=== PATIENT | male | born 1990 | race Caucasian/White ===

== ENCOUNTER 2016-11-27 13:16 | Inpatient (IN) ==
[2016-11-27 13:32] LABS: Bilirubin,Urine Negative (Negative); Blood,Urine Negative (Negative); Clarity,Urine Clear (Clear); Color,Urine Yellow (Yellow); Glucose,Urine (UA) Normal (Normal); Ketones,Urine Negative (Negative); Leukocyte Esterase,Urine Moderate (Negative); Nitrite,Urine Negative (Negative); PH,Urine 6.5 pH Units (5.0-8.0); Protein,Urine Negative (Neg-Trace); Specific Gravity,Urine 1.006 (1.010-1.025); Urobilinogen,Urine Normal (Normal)
[2016-11-27 13:36] LABS: Bacteria,Urine None Seen per hpf (None-Few); Hyaline Casts,Urine None Seen per lpf (None-Few); RBC,Urine 0-3 per hpf (0-3); Squamous Epithelial Cell,Urine Moderate per lpf (None-Few)
[2016-11-27 13:38] LABS: Amphetamine Screen,Urine Negative ng/mL (Cutoff=1000); Barbiturate Screen,Urine Negative ng/mL (Cutoff=200); Benzodiazepines Screen,Urine Negative ng/mL (Cutoff=200); Cannabinoid Screen,Urine Negative ng/mL (Cutoff = 50); Cocaine Screen,Urine Negative ng/mL (Cutoff= 300); Opiate Screen,Urine Negative ng/mL (Cutoff=300); Phencyclidine Screen,Urine Negative ng/mL (Cutoff=25)
[2016-11-27 13:43] LABS: Basophils # 0.1 K/mcL (0.0-0.2); Basophils % 0.7 %; Eosinophils # 0.3 K/mcL (0.0-0.6); Eosinophils % 2.5 %; Hematocrit 47.1 % (37.5-50.1); Hemoglobin 16.2 g/dL (12.9-16.9); Immature Granulocytes % 0.4 % (0-4); Lymphocytes # 2.3 K/mcL (0.6-4.6); Lymphocytes % 17.2 %; Mean Corpuscular HGB Conc 34.4 g/dL (31.6-35.5); Mean Corpuscular Hemoglobin 30.2 pg (28.0-33.3); Mean Corpuscular Volume 87.7 fL (83.0-100.0); Mean Platelet Volume 9.4 fL (9.4-12.4); Monocytes # 0.7 K/mcL (0.0-1.3); Monocytes % 5.4 %; Neutrophils # 9.9 K/mcL (1.6-8.9); Platelet Count 212 K/mcL (140-400); Red Blood Count 5.37 M/mcL (4.19-5.50); Red Cell Distribution Width 12.4 % (11.5-14.5); Segmented Neutrophils % 73.8 %
[2016-11-27 14:00] LABS: Acetaminophen < 1.0 mcg/mL (10-30); BUN/Creatinine Ratio 9 (6-26); Blood Urea Nitrogen 7 mg/dL (8-26); Calcium 9.8 mg/dL (8.6-10.8); Carbon Dioxide 25 mEq/L (19-29); Chloride 105 mEq/L (98-109); Ethanol < 10 mg/dL (0-10); Glucose 87 mg/dL (70-99); Osmolality,Calculated 283 (280-300); Salicylate < 5.0 mg/dL (15-30); Sodium 138 mEq/L (136-145); eGFR For African Americans > 60 (> 60); eGFR For Non-African Americans > 60 (> 60)
--- NOTE | 2016-11-27 14:14 | Emergency Department Note ---
Disposition Clinical Impression: Suicidal ideation Disposition: Admitted As Inpatient Psych HPI - General Chief Complaint: ED Psychiatric Symptoms Stated Complaint: suicidal ideations Time Seen by Provider: 11/27/16 13:21 Source: patient, EMS Mode of arrival: ambulatory Limitations: no limitations Nursing Notes Reviewed: Yes Vital Signs Reviewed: Yes - History of Present Illness Pt complaint: suicidal ideation Onset (ago): Just [employer] Duration: constant History of similar episodes: Yes Improves with: none Worsens with: none Alleged intoxication: No Associated Psychiatric Symptoms: suicidal ideation Associated symptoms: Reports: denies other symptoms Traumatic symptoms: denies traumatic injury Treatments prior to arrival: none Self harm or harm to others: admits thoughts of self harm (very upset today also no internet connection) - Related Data Allergies Allergy/AdvReac Type Severity Reaction Status Date / Time Erythromycin Base Allergy Anaphylaxis Verified 11/27/16 13:18 [From Erythrocin] penicillamine Allergy Anaphylaxis Verified 11/27/16 13:18 All systems ED: reviewed and negative except as stated. Constitutional: Denies: fever, chills, weakness Cardiovascular: Denies: chest pain Gastrointestinal: Denies: abdominal pain, nausea Past Medical History - Past Medical History Source: patient, old records reviewed, nursing notes reviewed Medical history: Reports: no medical history Psychiatric history: Reports: bipolar, schizophrenia - Social History Smoking Status: Current every day smoker Smokeless Tobacco Status: No Alcohol use: Reports: occasionally Drug use: Reports: marijuana Physical Exam - General Limitations: no limitations General appearance: alert, in no apparent distress - Head Head exam: atraumatic, normocephalic, normal inspection - Eye Eye exam: Present: normal appearance, PERRL, EOMI - Expanded Eye Exam Pupils: Left: reactive - ENT ENT exam: normal exam, normal oropharynx, mucous membranes moist - Expanded ENT Exam External ear exam: Present: normal external inspection Mouth exam: Present: normal external inspection Teeth exam: Present: normal inspection Throat exam: Present: normal inspection - Neck Neck exam: Present: normal inspection, full ROM, trachea midline - Chest Chest inspection: Present: normal inspection, symmetric chest wall rise - Respiratory Respiratory exam: Present: normal lung sounds bilaterally - Cardiovascular Cardiovascular exam: Present: regular rate, normal rhythm, normal heart sounds - Abdominal Exam Abdominal exam: Present: soft, Non-Tender. Absent: tenderness, distention, guarding, rebound, rigidity - Extremities Exam Extremities exam: Present: normal inspection, full ROM. Absent: tenderness, pedal edema - Expanded Upper Extremity Exam Shoulder exam: Present: normal inspection, full ROM Arm exam: Present: normal inspection, full ROM Elbow exam: Present: normal inspection, full ROM Forearm/Wrist exam: Present: normal inspection, full ROM Hand exam: Present: normal inspection, full ROM Vascular exam: Normal: capillary refill, radial pulse - Expanded Lower Extremity Exam Hip/Pelvis exam: Present: normal inspection, full ROM Upper leg exam: Present: normal inspection, full ROM Knee exam: Present: normal inspection, full ROM Lower leg exam: Present: normal inspection, full ROM Ankle exam: Present: normal inspection, full ROM Foot/toe exam: Present: normal inspection, full ROM Neurovascular/Tendon exam: Absent: motor deficit, sensory deficit, tendon deficit - Back Exam Back exam: Present: normal inspection, full ROM. Absent: tenderness - Neurological Exam Neurological exam: Present: alert, oriented X3 - Expanded Neurological Exam Patient oriented to: Present: person, place, time Coma Scale Eye Opening: Spontaneous Coma Scale Motor Response: Obeys Commands Coma Scale Verbal Response: Oriented Coma Scale Total: 15 - Psychiatric Psychiatric exam: Present: suicidal ideation - Skin Skin exam: Present: other (self inflicted abrasion left arm) Course Vital Signs Temperature 97.6 F 11/27/16 13:22 Pulse Rate 97 11/27/16 13:22 Respiratory Rate 16 11/27/16 13:22 Blood Pressure 131/87 11/27/16 13:22 O2 Sat by Pulse Oximetry 98 11/27/16 13:22 Temperature 97.6 F 11/27/16 13:22 Pulse Rate 97 11/27/16 13:22 Respiratory Rate 16 11/27/16 13:22 Blood Pressure 131/87 11/27/16 13:22 O2 Sat by Pulse Oximetry 98 11/27/16 13:22 Oxygen Delivery Oxygen Delivery Room Air Psych - Lab Data Result diagrams: 11/27/16 13:35 11/27/16 13:35 Lab Results 11/27/16 11/27/16 11/27/16 Range/Units 13:22 13:22 13:35 WBC 13.5 H (4.3-11.1) K/mcL RBC 5.37 (4.19-5.50) M/mcL Hgb 16.2 (12.9-16.9) g/dL Hct 47.1 (37.5-50.1) % MCV 87.7 (83.0-100.0) fL MCH 30.2 (28.0-33.3) pg MCHC 34.4 (31.6-35.5) g/dL RDW 12.4 (11.5-14.5) % Plt Count 212 (140-400) K/mcL MPV 9.4 (9.4-12.4) fL Immature Gran % 0.4 (0-4) % Seg Neutrophils % 73.8 % Lymphocytes % 17.2 % Monocytes % 5.4 % Eosinophils % 2.5 % Basophils % 0.7 % Neutrophils # 9.9 H (1.6-8.9) K/mcL Lymphocytes # 2.3 (0.6-4.6) K/mcL Monocytes # 0.7 (0.0-1.3) K/mcL Eosinophils # 0.3 (0.0-0.6) K/mcL Basophils # 0.1 (0.0-0.2) K/mcL Sodium (136-145) mEq/L Potassium (3.5-4.5) mEq/L Chloride (98-109) mEq/L Carbon Dioxide (19-29) mEq/L BUN (8-26) mg/dL Creatinine (0.72-1.25) mg/dL Est GFR ( Amer) (> 60) Est GFR (Non-Af Amer) (> 60) BUN/Creatinine Ratio (6-26) Glucose (70-99) mg/dL Calculated Osmolality (280-300) Calcium (8.6-10.8) mg/dL Urine Color Yellow (Yellow) Urine Clarity Clear (Clear) Urine pH 6.5 (5.0-8.0) pH Units Ur Specific [place] 1.006 L (1.010-1.025) Urine Protein Negative (Neg-Trace) mg/dL Urine Glucose (UA) Normal (Normal) mg/dL Urine Ketones Negative (Negative) mg/dL Urine Blood Negative (Negative) Urine Nitrite Negative (Negative) Urine Bilirubin Negative (Negative) Urine Urobilinogen Normal (Normal) mg/dL Ur Leukocyte Esterase Moderate H (Negative) Urine Microscopic RBC 0-3 (0-3) per hpf Urine Microscopic WBC 3-5 H (0-3) per hpf Ur Squamous Epith Cells Moderate H (None-Few) per lpf Urine Bacteria None Seen (None-Few) per hpf Hyaline Casts None Seen (None-Few) per lpf Salicylates (15-30) mg/dL Urine Opiates Screen Negative (Avyvsb=064) ng/mL Acetaminophen (10-30) mcg/mL Ur Barbiturates Screen Negative (Hhklos=479) ng/mL Ur Phencyclidine Scrn Negative (Cutoff=25) ng/mL Ur Amphetamines Screen Negative (Kptcii=9719) ng/mL U Benzodiazepines Scrn Negative (Oygsjz=593) ng/mL Urine Cocaine Screen Negative (Cutoff= 300) ng/mL U Marijuana (THC) Screen Negative (Cutoff = 50) ng/mL Ethyl Alcohol (0-10) mg/dL 11/27/16 Range/Units 13:35 WBC (4.3-11.1) K/mcL RBC (4.19-5.50) M/mcL Hgb (12.9-16.9) g/dL Hct (37.5-50.1) % MCV (83.0-100.0) fL MCH (28.0-33.3) pg MCHC (31.6-35.5) g/dL RDW (11.5-14.5) % Plt Count (140-400) K/mcL MPV (9.4-12.4) fL Immature Gran % (0-4) % Seg Neutrophils % % Lymphocytes % % Monocytes % % Eosinophils % % Basophils % % Neutrophils # (1.6-8.9) K/mcL Lymphocytes # (0.6-4.6) K/mcL Monocytes # (0.0-1.3) K/mcL Eosinophils # (0.0-0.6) K/mcL Basophils # (0.0-0.2) K/mcL Sodium 138 (136-145) mEq/L Potassium 4.0 (3.5-4.5) mEq/L Chloride 105 (98-109) mEq/L Carbon Dioxide 25 (19-29) mEq/L BUN 7 L (8-26) mg/dL Creatinine 0.77 (0.72-1.25) mg/dL Est GFR ( Amer) > 60 (> 60) Est GFR (Non-Af Amer) > 60 (> 60) BUN/Creatinine Ratio 9 (6-26) Glucose 87 (70-99) mg/dL Calculated Osmolality 283 (280-300) Calcium 9.8 (8.6-10.8) mg/dL Urine Color (Yellow) Urine Clarity (Clear) Urine pH (5.0-8.0) pH Units Ur Specific [place] (1.010-1.025) Urine Protein (Neg-Trace) mg/dL Urine Glucose (UA) (Normal) mg/dL Urine Ketones (Negative) mg/dL Urine Blood (Negative) Urine Nitrite (Negative) Urine Bilirubin (Negative) Urine Urobilinogen (Normal) mg/dL Ur Leukocyte Esterase (Negative) Urine Microscopic RBC (0-3) per hpf Urine Microscopic WBC (0-3) per hpf Ur Squamous Epith Cells (None-Few) per lpf Urine Bacteria (None-Few) per hpf Hyaline Casts (None-Few) per lpf Salicylates < 5.0 L (15-30) mg/dL Urine Opiates Screen (Eloouq=802) ng/mL Acetaminophen < 1.0 L (10-30) mcg/mL Ur Barbiturates Screen (Lgggcw=473) ng/mL Ur Phencyclidine Scrn (Cutoff=25) ng/mL Ur Amphetamines Screen (Xqcoqd=6738) ng/mL U Benzodiazepines Scrn (Tvsxfs=379) ng/mL Urine Cocaine Screen (Cutoff= 300) ng/mL U Marijuana (THC) Screen (Cutoff = 50) ng/mL Ethyl Alcohol < 10 (0-10) mg/dL Psychiatric Medical Clearance - Medical Clearance Checklist Medical History: No Social History Section defined Current Vitals: Last Vital Signs Temp 97.6 F 11/27/16 13:22 Pulse 97 11/27/16 13:22 Resp 16 11/27/16 13:22 BP 131/87 11/27/16 13:22 Pulse Ox 98 11/27/16 13:22 Psychiatric Lab Panel: Drug Levels and Toxicity 11/27/16 11/27/16 13:22 13:35 Urine Opiates Screen Negative Acetaminophen < 1.0 L Ur Barbiturates Screen Negative Ur Phencyclidine Scrn Negative Ur Amphetamines Screen Negative U Benzodiazepines Scrn Negative Urine Cocaine Screen Negative U Marijuana (THC) Screen Negative Ethyl Alcohol < 10 Abnormal Labs: Abnormal lab results WBC 13.5 K/mcL (4.3-11.1) H 11/27/16 13:35 Neutrophils # 9.9 K/mcL (1.6-8.9) H 11/27/16 13:35 BUN 7 mg/dL (8-26) L 11/27/16 13:35 Ur Specific [place] 1.006 (1.010-1.025) L 11/27/16 13:22 Ur Leukocyte Esterase Moderate (Negative) H 11/27/16 13:22 Urine Microscopic WBC 3-5 per hpf (0-3) H 11/27/16 13:22 Ur Squamous Epith Cells Moderate per lpf (None-Few) H 11/27/16 13:22 Salicylates < 5.0 mg/dL (15-30) L 11/27/16 13:35 Acetaminophen < 1.0 mcg/mL (10-30) L 11/27/16 13:35 Statement of Medical Clearance: I have evaluated the patient, reviewed diagnostic information, and certify that the patient's medical condition is sufficiently stable that transfer to the psychiatric unit does not pose a significant risk of deterioration.
[2016-11-27] MEDS ORDERED: Haloperidol Lactate 5 MG/ML VIAL IM PRN (16:44)
[2016-11-27] MEDS ORDERED: hydrOXYzine pamoate 25 MG CAPSULE PO PRN (16:44)
[2016-11-27] MEDS ORDERED: Acetaminophen 325 MG TABLET PO PRN (16:44)
[2016-11-27] MEDS ORDERED: MOM Conc 10 ML UD.LIQ PO PRN (16:44)
[2016-11-27] MEDS ORDERED: *HR* LORazepam 2 MG/ML VIAL IM PRN (16:44)
[2016-11-27] MEDS ORDERED: traZODone 50 MG TABLET PO PRN (16:44)
[2016-11-27] MEDS ORDERED: *HR* LORazepam 1 MG TABLET PO PRN (16:44)
[2016-11-27] MEDS ORDERED: Mag Hydrox/Al Hydrox/Simeth 30 ML UDC PO PRN (16:44)
[2016-11-27] MEDS ORDERED: Ibuprofen 400 MG TABLET PO PRN (16:44)
[2016-11-27] MEDS: RisperiDAL 3 MG TABLET PO SCH (20:47)
[2016-11-27] MEDS: Lithium Carbonate 300 MG CAPSULE PO SCH (20:48)
[2016-11-28] MEDS: Lithium Carbonate 300 MG CAPSULE PO SCH ×2 (08:32→20:45)
[2016-11-28] MEDS: Nicotine 2 MG GUM BC PRN ×3 (08:36→16:51)
--- NOTE | 2016-11-28 13:07 | Psychiatry History & Physical ---
Date of Encounter: 11/28/16 Time of Encounter: 11:55 History of Present Illness Patient Stated Chief Complaint: "I feel depressed and hopeless and suicidal" Medicare Admission Attestation: For traditional Medicare patients the provided hospital inpatient services are reasonable and necessary and in the case of services not specified as inpatient -only under 42 CFR 419.22 (n), that they are appropriately provided as inpatient services in accordance 42 CFR 412.3. For Critical Access Hospital the patient may reasonably be expected to be discharged or transferred to a hospital within 96 hours after admission to the Critical Access Hospital. Admitted From: Emergency Dept Plans for Post Hospital Care: Home History of Present Illness: Mr. Murillo is a 26 year old male Was known to us from prior multiple hospitalizations. He is noted to have a diagnosis of bipolar disorder. Patient reported that he has been fairly stable and has been doing well for the last few years. Patient reported that last week he found out that the financial analyst that is helping him to attend school will be discontinued. Patient reported that this has devastated him and he felt sad and depression with sadness hopelessness helplessness crying and weeping spells poor sleep and recurrent suicidal thoughts and ideations. Patient reported that his depressive symptoms have been getting worse to a point where he decided to slit his wrists. He did make a superficial cut he continued to experience suicidal thoughts and ideations was unable to contract for safety and was posing a significant threat to himself it was decided to transfer him in hospitalize him at [address] Past Med Surg Social Fam HX - Past Medical History Medical history: no medical history - Past Psychiatric History Psychiatric history: Reports: bipolar, depression, prior suicide attempt, previous psychiatric hospitalization Past psychiatric history details: Patient has extensive history of mental illness. Patient reported multiple prior psychiatric hospitalizations. His last hospitalization was in 2012. He has been receiving outpatient treatment [facility] to [facility]. Patient reportedly been compliant with his medications which are lithium and Risperdal and Paxil Family psychiatric history: No Family History of Suicide: None - Past Surgical History Surgical History: no surgical history - Social History Smoking Status: Current every day smoker Smokeless Tobacco Status: No Alcohol use: occasionally Drug use: cocaine, marijuana Additional substance use detail: Patient reported of using marijuana on a regular basis along with LSD cocaine and alcohol almost on a weekly basis.. Occupational status: disabled Current living situation: Home - Independent Activity Level: Independent ambulation Recent Out of Country Travel Within the Last 8 Weeks: No Exposure or Possible Exposure to Illness During Travel: No Additional social history: Patient is currently residing by himself. He is single but in a relationship with an older woman for the last 3 years. He is attending [employer] and just finished his first semester. He resides on his own. He denies any current legal issues. Medications & Allergies [place] Carbonate 600 mg PO BID 11/27/16 [History] Paroxetine [Paxil] 30 mg PO HS 11/27/16 [History] RisperiDONE [RisperDAL] 3 mg PO HS 11/27/16 [History] Allergies Erythromycin Base [From Erythrocin] Allergy (Verified 11/27/16 13:18) Anaphylaxis penicillamine Allergy (Verified 11/27/16 13:18) Anaphylaxis Review of Systems Psychiatric: Reports: depression, anxiety, abnormal sleep pattern, suicidal ideation, hopelessness Mental Status Exam Patient orientation: Yes Person, Yes Time, Yes Place Level of alertness: Alert Patient appearance: Appropriate, Unkempt, Disheveled Behavior: calm, cooperative Psychomotor activity: Normal Eye contact: Maintains Eye Contact Mood description: Depressed, Anxious Affect description: constricted, blunted Speech pattern: Normal rate, Normal rhythm, Normal tone Speech volume: Normal Thought process: Linear, Goal Oriented Thought content: Yes Suicidal ideation, No Homicidal ideation, No Overt delusions Perceptual disturbances: No Auditory hallucinations, No Visual hallucinations Attention span: Capable of Focused Attention Memory description: Grossly Intact Patient reliability: Reliable Historian Intelligence estimate: Average Judgment: Limited Insight: Partial Exam - HEENT Head exam IM: Present: atraumatic, normal inspection, normocephalic Eye exam IM: Present: normal appearance ENT exam IM: Present: mucous membranes dry - Neurological Neurological exam IM: Present: alert, CN II-XII intact, normal gait, oriented X3 , reflexes normal, no focal deficits, strengths equal and symetr throughout - GI/Abdominal GI/Abdominal exam IM: Present: normal bowel sounds - Skin Skin exam IM: Present: intact Results - Vital Signs Vital signs: Temp Pulse Resp BP Pulse Ox 98.2 F 81 16 116/74 98 11/28/16 09:00 11/28/16 09:00 11/28/16 09:00 11/28/16 09:00 11/27/16 13:22 - Drug Levels and Toxicology Drug Levels and Toxicology: Drug Levels and Toxicity 11/27/16 17:58 [place] 0.5 L - Labs Labs: Laboratory Last Values WBC 13.5 K/mcL (4.3-11.1) H 11/27/16 13:35 RBC 5.37 M/mcL (4.19-5.50) 11/27/16 13:35 Hgb 16.2 g/dL (12.9-16.9) 11/27/16 13:35 Hct 47.1 % (37.5-50.1) 11/27/16 13:35 MCV 87.7 fL (83.0-100.0) 11/27/16 13:35 MCH 30.2 pg (28.0-33.3) 11/27/16 13:35 MCHC 34.4 g/dL (31.6-35.5) 11/27/16 13:35 RDW 12.4 % (11.5-14.5) 11/27/16 13:35 Plt Count 212 K/mcL (140-400) 11/27/16 13:35 MPV 9.4 fL (9.4-12.4) 11/27/16 13:35 Immature Gran % 0.4 % (0-4) 11/27/16 13:35 Seg Neutrophils % 73.8 % 11/27/16 13:35 Lymphocytes % 17.2 % 11/27/16 13:35 Monocytes % 5.4 % 11/27/16 13:35 Eosinophils % 2.5 % 11/27/16 13:35 Basophils % 0.7 % 11/27/16 13:35 Neutrophils # 9.9 K/mcL (1.6-8.9) H 11/27/16 13:35 Lymphocytes # 2.3 K/mcL (0.6-4.6) 11/27/16 13:35 Monocytes # 0.7 K/mcL (0.0-1.3) 11/27/16 13:35 Eosinophils # 0.3 K/mcL (0.0-0.6) 11/27/16 13:35 Basophils # 0.1 K/mcL (0.0-0.2) 11/27/16 13:35 Sodium 138 mEq/L (136-145) 11/27/16 13:35 Potassium 4.0 mEq/L (3.5-4.5) 11/27/16 13:35 Chloride 105 mEq/L (98-109) 11/27/16 13:35 Carbon Dioxide 25 mEq/L (19-29) 11/27/16 13:35 BUN 7 mg/dL (8-26) L 11/27/16 13:35 Creatinine 0.77 mg/dL (0.72-1.25) 11/27/16 13:35 Est GFR ( Amer) > 60 (> 60) 11/27/16 13:35 Est GFR (Non-Af Amer) > 60 (> 60) 11/27/16 13:35 BUN/Creatinine Ratio 9 (6-26) 11/27/16 13:35 Glucose 87 mg/dL (70-99) 11/27/16 13:35 Calculated Osmolality 283 (280-300) 11/27/16 13:35 Calcium 9.8 mg/dL (8.6-10.8) 11/27/16 13:35 Urine Color Yellow (Yellow) 11/27/16 13:22 Urine Clarity Clear (Clear) 11/27/16 13:22 Urine pH 6.5 pH Units (5.0-8.0) 11/27/16 13:22 Ur Specific [place] 1.006 (1.010-1.025) L 11/27/16 13:22 Urine Protein Negative mg/dL (Neg-Trace) 11/27/16 13:22 Urine Glucose (UA) Normal mg/dL (Normal) 11/27/16 13:22 Urine Ketones Negative mg/dL (Negative) 11/27/16 13:22 Urine Blood Negative (Negative) 11/27/16 13:22 Urine Nitrite Negative (Negative) 11/27/16 13:22 Urine Bilirubin Negative (Negative) 11/27/16 13:22 Urine Urobilinogen Normal mg/dL (Normal) 11/27/16 13:22 Ur Leukocyte Esterase Moderate (Negative) H 11/27/16 13:22 Urine Microscopic RBC 0-3 per hpf (0-3) 11/27/16 13:22 Urine Microscopic WBC 3-5 per hpf (0-3) H 11/27/16 13:22 Ur Squamous Epith Cells Moderate per lpf (None-Few) H 11/27/16 13:22 Urine Bacteria None Seen per hpf (None-Few) 11/27/16 13:22 Hyaline Casts None Seen per lpf (None-Few) 11/27/16 13:22 Salicylates < 5.0 mg/dL (15-30) L 11/27/16 13:35 Urine Opiates Screen Negative ng/mL (Xlpxhs=343) 11/27/16 13:22 Acetaminophen < 1.0 mcg/mL (10-30) L 11/27/16 13:35 Ur Barbiturates Screen Negative ng/mL (Uzdgkg=537) 11/27/16 13:22 Ur Phencyclidine Scrn Negative ng/mL (Cutoff=25) 11/27/16 13:22 Ur Amphetamines Screen Negative ng/mL (Tfytsk=2460) 11/27/16 13:22 U Benzodiazepines Scrn Negative ng/mL (Pnnoxm=111) 11/27/16 13:22 [place] 0.5 mEq/L (0.6-1.2) L 11/27/16 17:58 Urine Cocaine Screen Negative ng/mL (Cutoff= 300) 11/27/16 13:22 U Marijuana (THC) Screen Negative ng/mL (Cutoff = 50) 11/27/16 13:22 Ethyl Alcohol < 10 mg/dL (0-10) 11/27/16 13:35 Assessment and Plan (1) Bipolar disorder, most recent episode depressed Current visit: Yes Status: Acute Plan: Admit inpatient for safety and stabilization, Close observation, Suicide Precautions per unit protocol, Encourage participation in unit milieu, Group Therapy, Monitor sleep, Monitor appetite Additional Plan: We will continue patient on lithium 600 mg twice a day and Risperdal 3 mg at bedtime for his bipolar disorder. We will order a lithium level and adjust it accordingly. We will increase Paxil from 30 mg at bedtime to 40 mg at bedtime for his depressive symptoms. Risks, benefits, side effects, alternatives discussed w/pt: Yes Patient agreeable to treatment: Yes Plans for Post Hospital Care: Home (2) Polysubstance abuse Current visit: Yes Status: Acute (3) Polysubstance abuse Current visit: Yes Status: Acute Plan: Admit inpatient for safety and stabilization, Close observation, Suicide Precautions per unit protocol, Encourage participation in unit milieu, Group Therapy, Monitor sleep, Monitor appetite Additional Plan: Patient will be counseled extensively regarding his drug use and is psychological and physiological impact. He will be helped to identify triggers and develop a relapse prevention plan. Risks, benefits, side effects, alternatives discussed w/pt: Yes Patient agreeable to treatment: Yes Plans for Post Hospital Care: Home
[2016-11-28] MEDS: RisperiDAL 3 MG TABLET PO SCH (20:45)
[2016-11-29] MEDS: Lithium Carbonate 300 MG CAPSULE PO SCH ×2 (08:27→20:58)
[2016-11-29] MEDS: Nicotine 2 MG GUM BC PRN ×4 (09:14→20:59)
--- NOTE | 2016-11-29 12:12 | Psychiatry Progress Note ---
Date of Encounter: 11/29/16 Time of Encounter: 11:57 Subjective Interval history: Patient seen and interviewed. Patient reported that last evening his girlfriend of 3 years called and broke up with him which has been extremely stressful and overwhelming for the patient. Patient reported that he has been managing his stress fairly well. He believes that he can address ongoing issues with girlfriend and they can reconcile again. He reported that his suicidal ideations have started to subside. Patient has been active on the unit and attending groups participating in activities. Patient is encouraged to start working on a safety plan. Patient has been tolerating medications fairly well. Review of Systems Psychiatric: Reports: depression, anxiety, abnormal sleep pattern, hopelessness Objective: Exam Patient orientation: Yes Person, Yes Time, Yes Place Level of alertness: Alert Patient appearance: Appropriate, Well Groomed Behavior: calm Psychomotor activity: Normal Eye contact: Maintains Eye Contact Mood description: Depressed Affect description: dysphoric Speech pattern: Normal rate, Normal rhythm, Normal tone Speech volume: Normal Thought process: Linear, Goal Oriented Thought content: No Suicidal ideation, No Homicidal ideation, No Overt delusions Perceptual disturbances: No Auditory hallucinations, No Visual hallucinations Judgment: Limited Insight: Partial Results - Vital Signs Vital Signs: Temp Pulse Resp BP Pulse Ox 98.2 F 71 16 117/79 98 11/29/16 09:00 11/29/16 09:00 11/29/16 09:00 11/29/16 09:00 11/27/16 13:22 Assessment and Plan (1) Bipolar disorder, most recent episode depressed Current visit: Yes Status: Acute Plan: Continue hospitalization, Close observation, Suicide Precautions per unit protocol, Encourage participation in unit milieu, Group Therapy, Monitor sleep Additional Plan: Continue with current regime of medications. Possible discharge tomorrow Risks, benefits, side effects, alternatives discussed w/pt: Yes Patient agreeable to treatment: Yes (2) Polysubstance abuse Current visit: Yes Status: Acute Plan: Continue hospitalization, Close observation Additional Plan: Patient is encouraged to work on a relapse prevention plan. Risks, benefits, side effects, alternatives discussed w/pt: Yes Patient agreeable to treatment: Yes Consult Discharge Plan - Plan Referrals: NO,PCP [Primary Care Provider] -
[2016-11-29] MEDS: RisperiDAL 3 MG TABLET PO SCH (20:57)
[2016-11-30] MEDS: Nicotine 2 MG GUM BC PRN ×4 (08:51→20:21)
[2016-11-30] MEDS: Lithium Carbonate 300 MG CAPSULE PO SCH ×2 (08:51→20:21)
--- NOTE | 2016-11-30 11:49 | Psychiatry Progress Note ---
Date of Encounter: 11/30/16 Time of Encounter: 11:10 Subjective Interval history: Patient seen for follow-up. I reviewed records and medication. Patient reports feeling better and compliant with medication. He attends groups and activities. And he is working on a safety plan after discharge. He denies any suicidal ideation and future oriented. His learning skills and problem- solving. I discussed with him the need to cut down on smoking and caffeine by 50% and he is agreeable. Review of Systems Psychiatric: Reports: depression, anxiety, abnormal sleep pattern, hopelessness Objective: Exam Patient orientation: Yes Person, Yes Time, Yes Place Level of alertness: Alert Patient appearance: Appropriate, Unkempt, Disheveled Behavior: calm, cooperative Psychomotor activity: Normal Eye contact: Minimal Contact Mood description: Depressed, Anxious Affect description: congruent with mood, constricted Speech pattern: Normal rate, Normal rhythm, Normal tone Speech volume: Normal Thought process: Linear, Goal Oriented Thought content: No Suicidal ideation, No Homicidal ideation, No Overt delusions Perceptual disturbances: No Auditory hallucinations, No Visual hallucinations Judgment: Fair Insight: Partial Results - Vital Signs Vital Signs: Temp Pulse Resp BP Pulse Ox 97.7 F 73 18 109/75 98 11/30/16 09:00 11/30/16 09:00 11/30/16 09:00 11/30/16 09:00 11/27/16 13:22 Assessment and Plan (1) Bipolar disorder, most recent episode depressed Current visit: Yes Status: Acute Plan: Continue hospitalization, Close observation, Suicide Precautions per unit protocol, Encourage participation in unit milieu, Group Therapy, Monitor sleep, Monitor appetite Additional Plan: Patient advised to cut down on his smoking and caffeine by 50% Risks, benefits, side effects, alternatives discussed w/pt: Yes Patient agreeable to treatment: Yes Consult Discharge Plan - Plan Referrals: NO,PCP [Primary Care Provider] -
[2016-11-30] MEDS: RisperiDAL 3 MG TABLET PO SCH (20:21)
[2016-12-01] MEDS: Nicotine 2 MG GUM BC PRN ×2 (08:53→12:02)
[2016-12-01 08:55] VITALS: BP 141/78
[2016-12-01] MEDS: Lithium Carbonate 300 MG CAPSULE PO SCH (11:21)
--- NOTE | 2016-12-01 12:22 | Discharge Summary ---
Date of Encounter: 12/01/16 Time of Encounter: 12:19 Diagnosis - Discharge Diagnosis (1) Bipolar disorder, most recent episode depressed Status: Acute Medications - Discharge Medications Prescriptions: [facility] Carbonate 600 mg PO BID #60 capsule Paroxetine [Paxil] 30 mg PO HS #30 tablet RisperiDONE [RisperDAL] 3 mg PO HS #30 tablet [place] Carbonate 600 mg PO BID #60 capsule 12/01/16 [Rx] Paroxetine [Paxil] 30 mg PO HS #30 tablet 12/01/16 [Rx] RisperiDONE [RisperDAL] 3 mg PO HS #30 tablet 12/01/16 [Rx] Allergies Erythromycin Base [From Erythrocin] Allergy (Verified 11/27/16 13:18) Anaphylaxis penicillamine Allergy (Verified 11/27/16 13:18) Anaphylaxis Results Procedures and tests throughout hospitalization: Completed Lab Orders Category Date Time Status [facility] 11/27/16 17:58 Completed [facility] 12/01/16 10:12 Completed Provider Date of admission: 11/27/16 15:46 Primary care physician: PCP NO Discharging clinician: Rober Ny Assessment and Plan - Patient/Caregiver Discharge Instructions Activity: resume usual activities as tolerated Diet: regular diet - Follow up Plan Follow up with: Krupa Ewing [Outside] (You will see Kendy Arguelles for counseling on: . You will see Korey Box for medication management on: .) Functional capacity at discharge: independent ambulation Overall status at discharge: Stable Disposition: Home, Self-Care Hospital Course Hospital course: Mr. Murillo is a 26 year old male admitted for depression and suicidal ideation. For details of the admission please see H&P On the unit patient was restarted on his medication, his lithium level on admission was 0.5 and prior to discharge was 0.7 which is therapeutic. Patient reported improved sleep and less depression and denied suicidal ideation. He participated in group activities and he was advised on cutting down on his smoking and caffeine by 50%. Prior to discharge patient was medically stable and future oriented and his discharge plans were completed by the social services specialist. - Time Spent with Patient Total time spent providing and/or coordinating discharge services: Less than 30 minutes Quality - Multiple Antipsychotics Patient discharged on 2 or more antipsychotic medications: No Procedures - Procedures Procedures: Medication Management, Crisis Stabilization, Supportive Therapy, Group Therapy, Psychoeducational Therapy Mental Status Exam - Mental Status Exam Patient orientation: Yes Person, Yes Time, Yes Place Level of alertness: Alert Patient appearance: Appropriate, Unkempt Behavior: calm, cooperative Psychomotor activity: Normal Eye contact: Maintains Eye Contact Mood description: Euthymic/stable Affect description: congruent with mood, full range Speech pattern: Normal rate, Normal rhythm, Normal tone Speech Volume: Normal Thought process: Linear, Goal Oriented Thought Content: No Suicidal ideation, No Homicidal ideation, No Overt delusions Perceptual Disturbances: No Auditory hallucinations, No Visual hallucinations Judgment: Limited Insight: Partial
== END 2016-12-01 13:25 | disposition home or self-care (01) | DRG 885 ==
LOC: EMEROO 13:16 → 1ANU 15:46 → SUATTDRO 15:46 → 1ANU 16:22
PROVIDERS: ADMIT Psychiatry & Neurology Psychiatry; ATTEND Psychiatry & Neurology Psychiatry

== ENCOUNTER 2020-09-24 17:02 | Observation (INO) ==
[2020-09-24] MEDS ORDERED: Clindamycin 600 MG/50 ML 600 MG/50 ML IV.SOLN IVPB ONE (18:05)
[2020-09-24] MEDS ORDERED: Morphine Sulfate 2 MG/ML SYRINGE IVP ONE (18:06)
[2020-09-24] MEDS ORDERED: Isovue-370 500 ML BOTTLE IVP ONE (18:06)
[2020-09-24 18:10] LABS: Basophils # 0.1 K/mcL (0.0-0.2); Basophils % 0.7 %; Eosinophils # 0.2 K/mcL (0.0-0.6); Eosinophils % 1.8 %; Hematocrit 46.7 % (37.5-50.1); Hemoglobin 15.1 g/dL (12.9-16.9); Immature Granulocytes % 0.3 % (0-4); Lymphocytes # 1.4 K/mcL (0.6-4.6); Lymphocytes % 10.8 %; Mean Corpuscular HGB Conc 32.3 g/dL (31.6-35.5); Mean Corpuscular Hemoglobin 30.8 pg (28.0-33.3); Mean Corpuscular Volume 95.3 fL (83.0-100.0); Mean Platelet Volume 8.4 fL (9.4-12.4); Monocytes # 0.9 K/mcL (0.0-1.3); Monocytes % 6.8 %; Neutrophils # 10.6 K/mcL (1.6-8.9); Platelet Count 208 K/mcL (140-400); Red Cell Distribution Width 12.3 % (11.5-14.5); Segmented Neutrophils % 79.6 %; White Blood Count 13.3 K/mcL (4.3-11.1)
[2020-09-24] MEDS ORDERED: 0.9 % Sodium Chloride 1,000 ML IVC ONE ×2 (18:11)
[2020-09-24] MEDS ORDERED: Cefepime HCl 2,000 MG in 0.9 % Sodium Chloride Mini Bag 100 ML IVPB STA (18:18)
[2020-09-24] MEDS ORDERED: Vancomycin 1,750 MG/517.5 ML IV.SOLN IVPB ONE (18:19)
[2020-09-24 18:26] LABS: Alanine Aminotransferase 15 Units/L (7-52); Albumin 3.8 g/dL (3.5-5.7); Albumin/Globulin Ratio 1.3 (1.1-2.2); Alkaline Phosphatase 106 Units/L (34-104); Aspartate Amino Transferase 14 Units/L (13-39); BUN/Creatinine Ratio 12 (6-26); Bilirubin,Total 0.5 mg/dL (0.3-1.0); Blood Urea Nitrogen 9 mg/dL (6-20); Calcium 9.3 mg/dL (8.6-10.3); Carbon Dioxide 24 mEq/L (23-29); Chloride 103 mEq/L (98-107); Glucose 84 mg/dL (70-105); Osmolality,Calculated 272 (280-300); Potassium 4.2 mEq/L (3.5-5.1); Sodium 132 mEq/L (136-145); Total Protein 6.8 g/dL (6.4-8.9); eGFR For African Americans > 60 (> 60); eGFR For Non-African Americans > 60 (> 60)
[2020-09-24] MEDS ORDERED: Lidocaine 1% 20 ML MDV INFILT ONE (19:45)
[2020-09-24] MEDS ORDERED: Naloxone 0.4 MG/ML INJ IVP PRN (22:57)
[2020-09-24] MEDS ORDERED: Ondansetron 4 MG/2 ML VIAL IVP PRN (22:57)
[2020-09-24] MEDS ORDERED: Acetaminophen 325 MG TABLET PO PRN (22:57)
[2020-09-24] MEDS ORDERED: *HR* Dextrose 50 % in Water (Vial) 50 ML VIAL IVP PRN (22:58)
[2020-09-24] MEDS ORDERED: Dextrose Gel 15 GM/37.5 ML TUBE PO PRN ×2 (22:58)
[2020-09-24] MEDS ORDERED: D5% in Water 1,000 ML IVC PRN (22:58)
[2020-09-24] MEDS: 0.9 % Sodium Chloride 1,000 ML IVC SCH (23:36)
[2020-09-24] MEDS: Nicotine 2 MG GUM BC PRN (23:36)
[2020-09-24 23:45] LABS: Ethanol < 10 mg/dL (Less than 10)
[2020-09-25 00:25] LABS: Bilirubin,Urine Negative (Negative); Blood,Urine Negative (Negative); Clarity,Urine Clear (Clear); Color,Urine Light-Orange (Yellow); Glucose,Urine (UA) Normal (Normal); Ketones,Urine 10 mg/dL (Negative); Leukocyte Esterase,Urine Small (Negative); Nitrite,Urine Negative (Negative); Protein,Urine Trace mg/dL (Neg-Trace); Specific Gravity,Urine > 1.030 (1.010-1.025); Squamous Epithelial Cell,Urine Few per hpf (None-Few); Urobilinogen,Urine Normal (Normal); WBC,Urine 15-30 per hpf (0-3)
[2020-09-25 00:34] LABS: Amphetamine Screen,Urine Negative ng/mL (Cutoff=1000); Barbiturate Screen,Urine Negative ng/mL (Cutoff=200); Benzodiazepines Screen,Urine Negative ng/mL (Cutoff=200); Cannabinoid Screen,Urine Positive ng/mL (Cutoff = 50); Cocaine Screen,Urine Negative ng/mL (Cutoff= 300); Opiate Screen,Urine Positive ng/mL (Cutoff=300); Phencyclidine Screen,Urine Negative ng/mL (Cutoff=25)
[2020-09-25] MEDS: Cefepime HCl 2,000 MG in 0.9 % Sodium Chloride Mini Bag 100 ML IVPB SCH ×3 (03:11→17:52)
[2020-09-25] MEDS: *HR* Heparin 5,000 UNIT/ML VIAL SQ SCH ×3 (04:53→20:34)
[2020-09-25 05:39] LABS: Hematocrit 44.2 % (37.5-50.1); Hemoglobin 14.2 g/dL (12.9-16.9); Mean Corpuscular HGB Conc 32.1 g/dL (31.6-35.5); Mean Corpuscular Hemoglobin 30.9 pg (28.0-33.3); Mean Corpuscular Volume 96.1 fL (83.0-100.0); Mean Platelet Volume 8.6 fL (9.4-12.4); Platelet Count 209 K/mcL (140-400); Red Cell Distribution Width 12.3 % (11.5-14.5); White Blood Count 10.2 K/mcL (4.3-11.1)
[2020-09-25 05:41] LABS: Estimated Average Glucose 82 mg/dl; Hemoglobin A1C 4.5 %
[2020-09-25 05:56] LABS: BUN/Creatinine Ratio 13 (6-26); Blood Urea Nitrogen 8 mg/dL (6-20); Calcium 8.6 mg/dL (8.6-10.3); Carbon Dioxide 22 mEq/L (23-29); Chloride 109 mEq/L (98-107); Glucose 67 mg/dL (70-105); Osmolality,Calculated 283 (280-300); Potassium 4.1 mEq/L (3.5-5.1); Sodium 138 mEq/L (136-145); eGFR For African Americans > 60 (> 60); eGFR For Non-African Americans > 60 (> 60)
[2020-09-25] MEDS: Lithium Carbonate 300 MG CAPSULE PO SCH ×2 (08:42→20:28)
[2020-09-25] MEDS: Nicotine 2 MG GUM BC PRN ×2 (08:43→18:00)
[2020-09-25] MEDS: 0.9 % Sodium Chloride 1,000 ML IVC SCH ×2 (08:44→20:31)
[2020-09-25] MEDS: Vancomycin 1,750 MG/517.5 ML IV.SOLN IVPB SCH ×2 (08:44→20:28)
[2020-09-25] MEDS ORDERED: PARoxetine 30 MG TABLET PO SCH (21:00)
[2020-09-25] MEDS ORDERED: RisperiDAL 3 MG TABLET PO SCH (21:00)
[2020-09-26 01:21] LABS: Hematocrit 43.3 % (37.5-50.1); Hemoglobin 13.6 g/dL (12.9-16.9); Mean Corpuscular HGB Conc 31.4 g/dL (31.6-35.5); Mean Corpuscular Hemoglobin 30.3 pg (28.0-33.3); Mean Corpuscular Volume 96.4 fL (83.0-100.0); Mean Platelet Volume 8.7 fL (9.4-12.4); Platelet Count 217 K/mcL (140-400); Red Blood Count 4.49 M/mcL (4.19-5.50); Red Cell Distribution Width 12.3 % (11.5-14.5); White Blood Count 9.8 K/mcL (4.3-11.1)
[2020-09-26 01:40] LABS: BUN/Creatinine Ratio 13 (6-26); Blood Urea Nitrogen 8 mg/dL (6-20); Calcium 9.1 mg/dL (8.6-10.3); Carbon Dioxide 23 mEq/L (23-29); Chloride 109 mEq/L (98-107); Glucose 83 mg/dL (70-105); Osmolality,Calculated 283 (280-300); Sodium 138 mEq/L (136-145); eGFR For African Americans > 60 (> 60); eGFR For Non-African Americans > 60 (> 60)
[2020-09-26] MEDS: Cefepime HCl 2,000 MG in 0.9 % Sodium Chloride Mini Bag 100 ML IVPB SCH ×2 (02:39→11:35)
[2020-09-26] MEDS: *HR* Heparin 5,000 UNIT/ML VIAL SQ SCH ×2 (04:12→12:39)
[2020-09-26] MEDS: Vancomycin 1,750 MG/517.5 ML IV.SOLN IVPB SCH (08:36)
[2020-09-26] MEDS: Lithium Carbonate 300 MG CAPSULE PO SCH (08:36)
[2020-09-26] MEDS: Nicotine 2 MG GUM BC PRN (08:43)
[2020-09-26] MEDS: 0.9 % Sodium Chloride 1,000 ML IVC SCH (10:34)
[2020-09-26 10:53] VITALS: BP 107/72
[2020-09-26 14:48] LABS: Hematocrit 46.8 % (37.5-50.1)
[2020-09-26 14:52] LABS: Hemoglobin 15.3 g/dL (12.9-16.9)
== END 2020-09-26 15:00 | disposition home or self-care (01) ==
LOC: EMEROOARM 17:02 → 3BNU 17:02
PROVIDERS: ADMIT Student in an Organized Health Care Education/Training Program; ATTEND Student in an Organized Health Care Education/Training Program